=== PATIENT | female | born 1955 | race Caucasian/White ===

== ENCOUNTER 2017-01-02 18:44 | Emergency (ER) | payer SELFPAY ==
[~2017-01-02] VITALS: Ht 165.1 cm; Wt 83.5 kg
[~2017-01-02 18:44] MED LIST: AMITRIPTYLINE H25 MG PO; CIPRO500 MG PO; DESYREL100 MG PO; ELAVIL25 MG PO; LIDODERM 5% P1 PATCH TD; LITHIUM CARBON300 MG PO; NAPROSYN500 MG PO; PHENERGAN-CODE120 ML PO; PREDNISONE20 MG PO; PROVENTIL,2.5 MG/0.5 IH; TRAZODONE HCL150 MG PO; VALIUM2 MG PO; VENTOLIN HFA18 GM IH
[2017-01-02 19:57] LABS: HEMATOCRIT 42.6 % (36.0-46.0); MCH 29.5 PG (29.0-34.0); MCHC 32.4 G/DL (30.0-36.0); MEAN PLAT.VOLUME 10.1 uM^3 (9.5-12.4); PLATELET COUNT 317 K/uL (156-360); RBC DIS.WIDTH-CV 13.5 % (11.8-14.6); RBC DIS.WIDTH-SD 43.9 % (39-53); RED BLOOD COUNT 4.68 M/uL (3.80-5.20); WHITE BLOOD COUNT 8.6 K/uL (4.1-10.2)
[2017-01-02 20:06] LABS: CHLORIDE 106 mEq/L (99-109); POTASSIUM 3.7 mEq/L (3.7-5.4); SODIUM 142 mEq/L (136-147)
[2017-01-02 20:08] LABS: GLUCOSE 89 mg/dL (70-99)
[2017-01-02 20:09] LABS: ANION GAP 8 MEQ/L (2-14)
[2017-01-02 20:11] LABS: GFR ESTIMATE (CALCULATED) > 59 mL/min/
[2017-01-02 20:12] LABS: UREA NITROGEN (BUN) 15 mg/dL (9-23)
[2017-01-02] MEDS ORDERED: PROAIR HFA8.5 GM IH (21:03)
[2017-01-02] MEDS ORDERED: PREDNISONE20 MG PO (21:03)
[2017-01-02] MEDS ORDERED: DOXYCYCLINE HY100 M3 PO (21:04)
[2017-01-02 21:22] VITALS: BP 165/80
== END 2017-01-02 21:23 | disposition home or self-care (01) ==
LOC: EME 18:44
DX: J40 Bronchitis, not specified as acute or chronic (principal); J44.1 Chronic obstructive pulmonary disease with (acute) exacerbation; F17.200 Nicotine dependence, unspecified, uncomplicated
CPT/HCPCS: 71020; 80048; 85027; 93005; 94640; 99281; 99284; J7512

== ENCOUNTER 2017-11-27 08:27 | Emergency (ER) | payer SELFPAY ==
[~2017-11-27] VITALS: Ht 165.1 cm; Wt 79.6 kg
[~2017-11-27 08:27] MED LIST changes: +DOXYCYCLINE HY100 M3 PO; +PROAIR HFA8.5 GM IH
[2017-11-27 09:56] LABS: BASOPHIL (%) 0.7 % (0-1); BASOPHIL COUNT 0.1 K/uL (0-0.1); EOSINOPHIL (%) 13.7 % (0-5); EOSINOPHIL COUNT 1.3 K/uL (0-0.3); HEMATOCRIT 42.3 % (36.0-46.0); HEMOGLOBIN 13.9 G/DL (11.9-15.5); IMMATURE GRANULOCYTE (%) 0.2 % (0.0-0.7); LYMPHOCYTE (%) 21.5 % (15-42); MCH 30.3 PG (29.0-34.0); MCHC 32.9 G/DL (30.0-36.0); MCV 92.4 FL (83-99); MONOCYTE (%) 5.8 % (3-12); MONOCYTE COUNT 0.5 K/uL (0-0.8); NEUTROPHIL (%) 58.1 % (45-76); NEUTROPHIL COUNT 5.3 K/uL (1.8-6.4); PLATELET COUNT 263 K/uL (156-360); RBC DIS.WIDTH-CV 13.3 % (11.8-14.6); RED BLOOD COUNT 4.58 M/uL (3.80-5.20); WHITE BLOOD COUNT 9.2 K/uL (4.1-10.2)
[2017-11-27 10:05] LABS: ALBUMIN 3.7 g/dL (3.2-4.8); CHLORIDE 105 mEq/L (99-109); POTASSIUM 4.2 mEq/L (3.7-5.4); SODIUM 142 mEq/L (136-147)
[2017-11-27 10:07] LABS: GLUCOSE 105 mg/dL (70-99); TOTAL PROTEIN 6.6 g/dL (6.4-8.3)
[2017-11-27 10:09] LABS: TOTAL BILIRUBIN 0.2 mg/dL (0.0-1.0)
[2017-11-27 10:11] LABS: ALKALINE PHOSPHATASE 101 IU/L (3-129); CREATININE 0.8 mg/dL (0.6-1.3); GFR ESTIMATE (CALCULATED) > 59 mL/min/
[2017-11-27 10:12] LABS: UREA NITROGEN (BUN) 14 mg/dL (9-23)
[2017-11-27 10:13] LABS: AST (GOT) 12 IU/L (2-34)
[2017-11-27 10:14] LABS: ALT (GPT) 13 IU/L (3-49)
[2017-11-27 10:17] LABS: TROP-I INTERPRETATION NEGATIVE; TROPONIN-I < 0.01 ng/mL (0.0-0.30)
[2017-11-27] MEDS ORDERED: MOTRIN600 MG PO (13:21)
[2017-11-27] MEDS ORDERED: PREDNISONE20 MG PO (13:21)
[2017-11-27] MEDS ORDERED: NORCO 5/3251 TABLET PO (13:21)
[2017-11-27 13:31] VITALS: BP 184/78
== END 2017-11-27 13:33 | disposition home or self-care (01) ==
LOC: EME 08:27
PROVIDERS: Emergency Medicine
DX: J44.1 Chronic obstructive pulmonary disease with (acute) exacerbation (principal); Z86.73 Personal history of transient ischemic attack (TIA), and cerebral infarction without residual deficits; F32.9 Major depressive disorder, single episode, unspecified; F17.200 Nicotine dependence, unspecified, uncomplicated; Z88.5 Allergy status to narcotic agent
CPT/HCPCS: 71020; 73030; 80053; 84484; 85025; 93005; 94640; 99281; 99284; J7512